=== PATIENT | male | born 1970 ===

== ENCOUNTER 2017-04-04 18:57 | Observation (INO) | payer MEDICAID ==
--- NOTE | 2017-04-04 20:22 | EDM.PDOC ---
ED HPI GENERAL MEDICAL PROBLEM - General Chief Complaint: General Stated Complaint: PT DIZZY Time Seen by Provider: 04/04/17 19:21 Source of Information: Reports: Patient History Limitations: Reports: No Limitations - History of Present Illness INITIAL COMMENTS - FREE TEXT/NARRATIVE: Patient presents with a three-day history of blurry vision, weakness, off-and- on dizziness, nausea thirst that he cannot quench, and "peeing lots". He denies any medical problems but he has had very inconsistent medical care in his life. He denies any personal or family history of diabetes. 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 Right Lower Abdomen Pain Score (Numeric/FACES): 4 - Related Data Allergies Allergy/AdvReac Type Severity Reaction Status Date / Time No Known Allergies Allergy Verified 04/04/17 19:15 Home Meds: Home Meds . [No Known Home Meds] 04/04/17 [History] Past Medical History Gastrointestinal History: Reports: None - Infectious Disease History Infectious Disease History: Reports: Chicken Pox, Shingles - Past Surgical History GI Surgical History: Reports: Hernia, Abdominal Social & Family History - Family History Family Medical History: Noncontributory - Tobacco Use Smoking Status *Q: Current Every Day Smoker Years of Tobacco use: 30 Packs/Tins Daily: 1 - Caffeine Use Caffeine Use: Reports: Coffee, Soda - Recreational Drug Use Recreational Drug Use: No ED ROS GENERAL - Review of Systems Review Of Systems: See Below Constitutional: Denies: Fever, Night Sweats HEENT: Reports: No Symptoms Respiratory: Reports: No Symptoms. Denies: Shortness of Breath, Cough Cardiovascular: Denies: Chest Pain, Lightheadedness, Palpitations Endocrine: Reports: Polydypsia, Polyuria GI/Abdominal: Reports: Abdominal Pain (mild LLQ), Nausea. Denies: Black Stool, Bloody Stool, Constipation, Diarrhea : Denies: Dysuria, Urgency Musculoskeletal: Reports: No Symptoms Skin: Reports: No Symptoms Neurological: Reports: Dizziness, Headache (off and on mild), Weakness, Other ( blurry vision) Psychiatric: Reports: No Symptoms Hematologic/Lymphatic: Reports: No Symptoms Immunologic: Reports: No Symptoms ED EXAM, GENERAL - Physical Exam Exam: See Below Exam Limited By: No Limitations General Appearance: Alert, No Apparent Distress Eye Exam: Bilateral Eye: EOMI, PERRL Ears: Normal External Exam, Normal TMs Nose: Normal Inspection Throat/Mouth: Normal Inspection Head: Atraumatic, Normocephalic Neck: Normal Inspection Respiratory/Chest: No Respiratory Distress, Lungs Clear, Normal Breath Sounds Cardiovascular: Normal Peripheral Pulses, Regular Rate, Rhythm, No Murmur GI/Abdominal: Soft, Non-Tender, No Distention Back Exam: Normal Inspection Extremities: Normal Inspection Neurological: Alert, Oriented, CN II-XII Intact, Normal Cognition, No Motor/ Sensory Deficits Psychiatric: Normal Affect, Normal Mood Skin Exam: Warm, Dry, Intact, Normal Color, No Rash Lymphatic: No Adenopathy Course - Vital Signs Last Recorded V/S: Last Vital Signs Temp 36.8 C 04/04/17 19:11 Pulse 100 04/04/17 19:11 Resp 17 04/04/17 19:11 BP 133/78 04/04/17 19:11 Pulse Ox 94 L 04/04/17 19:11 - Orders/Labs/Meds Orders: Active Orders 24 hr Category Date Time Status Patient Status [ADT] Stat ADT 04/04/17 21:04 Ordered GLYCOSYLATED HEMOGLOBIN,HGBA1C [CHEM] Stat Lab 04/04/17 21:02 Ordered UA W/MICROSCOPIC [URIN] Stat Lab 04/04/17 20:49 Uncollected Sodium Chloride 0.9% [Normal Saline] 1,000 ml Med 04/04/17 20:51 Ordered IV STAT Medication Orders Sodium Chloride (Normal Saline) 1,000 mls @ 999 mls/hr IV STAT ONE Stop: 04/04/17 21:51 Labs: Laboratory Tests 04/04/17 04/04/17 04/04/17 Range/Units 20:00 20:00 20:57 WBC 8.75 (4.0-11.0) K/uL RBC 4.63 (4.50-5.90) M/uL Hgb 14.1 (13.0-17.0) g/dL Hct 40.1 (38.0-50.0) % MCV 86.6 (80.0-98.0) fL MCH 30.5 (27.0-32.0) pg MCHC 35.2 (31.0-37.0) g/dL RDW Std Deviation 39.5 (28.0-62.0) fl RDW Coeff of Yves 13 (11.0-15.0) % Plt Count 254 (150-400) K/uL MPV 10.80 (7.40-12.00) fL Neut % (Auto) 68.4 (48.0-80.0) % Lymph % (Auto) 23.3 (16.0-40.0) % [place] % (Auto) 5.4 (0.0-15.0) % Eos % (Auto) 2.6 (0.0-7.0) % Baso % (Auto) 0.3 (0.0-1.5) % Neut # (Auto) 6.0 H (1.4-5.7) K/uL Lymph # (Auto) 2.0 (0.6-2.4) K/uL [place] # (Auto) 0.5 (0.0-0.8) K/uL Eos # (Auto) 0.2 (0.0-0.7) K/uL Baso # (Auto) 0.0 (0.0-0.1) K/uL Nucleated RBC % 0.0 /100WBC Nucleated RBCs # 0 K/uL Sodium 135 L (136-146) mmol/L Potassium 4.6 (3.5-5.1) mmol/L Chloride 103 (98-110) mmol/L Carbon Dioxide 22 (21-31) mmol/L BUN 13 (6.0-23.0) mg/dL Creatinine 1.2 (0.6-1.5) mg/dL Est Cr Clr Drug Dosing 63.04 mL/min Estimated GFR (MDRD) > 60.0 ml/min Glucose 631 H* (60-110) mg/dL Calcium 9.4 (8.8-10.8) mg/dL Total Bilirubin 0.4 (0.1-1.5) mg/dL AST 13 (5-40) IU/L ALT 21 (8-54) IU/L Alkaline Phosphatase 127 (40-150) Total Protein 6.6 (6.0-8.0) g/dL Albumin 3.8 (3.5-5.0) g/dL Globulin 2.8 (2.0-3.5) g/dL Albumin/Globulin Ratio 1.4 (1.3-2.8) Urine Color YELLOW Urine Appearance CLEAR Urine pH 6.5 (5.0-8.0) Ur Specific [place] 1.010 (1.001-1.035) Urine Protein NEGATIVE (NEGATIVE) mg/dL Urine Glucose (UA) >=1000 (NEGATIVE) mg/dL Urine Ketones 15 H (NEGATIVE) mg/dL Urine Occult Blood NEGATIVE (NEGATIVE) Urine Nitrite NEGATIVE (NEGATIVE) Urine Bilirubin NEGATIVE (NEGATIVE) Urine Urobilinogen 0.2 (<2.0) EU/dL Ur Leukocyte Esterase NEGATIVE (NEGATIVE) Meds: Medications Generic Name Dose Route Start Last Admin Trade Name Freq PRN Reason Stop Dose Admin Sodium Chloride 1,000 mls @ 999 mls/hr 04/04/17 20:51 Normal Saline IV 04/04/17 21:51 STAT ONE Discontinued Medications Generic Name Dose Route Start Last Admin Trade Name Freq PRN Reason Stop Dose Admin Insulin Human Regular 10 unit 04/04/17 21:03 Novolin R IVPUSH 04/04/17 21:04 ONETIME ONE Protocol - Re-Assessments/Exams Free Text/Narrative Re-Assessment/Exam: 04/04/17 21:00 Visited with patient regarding his blood sugar, new onset diabetes, acute management plan Free Text/Narrative Re-Assessment/Exam: 04/04/17 21:[address] Jag Chang regarding new onset diabetes with blood sugar over 600. Same will admit for observation to initiate management plan. 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 : without half-way use Qualified Code(s): E13.65 - Other specified diabetes mellitus with hyperglycemia - Discharge Information Referrals: PCP,None [Primary Care Provider] - Forms: ED Department Discharge - My Orders Last 24 Hours: My Active Orders 04/04/17 20:49 UA W/MICROSCOPIC [URIN] Stat 04/04/17 20:51 Sodium Chloride 0.9% [Normal Saline] 1,000 ml IV STAT 04/04/17 21:04 Patient Status [ADT] Stat - Assessment/Plan Last 24 Hours: My Active Orders 04/04/17 20:49 UA W/MICROSCOPIC [URIN] Stat 04/04/17 20:51 Sodium Chloride 0.9% [Normal Saline] 1,000 ml IV STAT 04/04/17 21:04 Patient Status [ADT] Stat
[2017-04-04 20:34] LABS: CHLORIDE,CL 103 mmol/L (98-110); SODIUM,NA 135 mmol/L (136-146)
[2017-04-04] MEDS ORDERED: Sodium Chloride 0.9% 1,000 ML IV ONE (20:51)
[2017-04-04] MEDS ORDERED: Insulin Regular, Human 100 Units/ML 10 ML Vial IVPUSH ONE (21:03)
[2017-04-04] MEDS ORDERED: Ondansetron 4 MG/2 ML SDV IVPUSH PRN (22:27)
[2017-04-04] MEDS ORDERED: Acetaminophen 325 MG Tab PO PRN (22:27)
[2017-04-04] MEDS ORDERED: Sodium Chloride 0.9% 1,000 ML IV SCH (22:30)
[2017-04-04] MEDS: Sodium Chloride 0.9% 1,000 ML IV SCH (22:59)
[2017-04-04] MEDS ORDERED: Insulin Aspart 100 Units/ML 3 ML Pen SUBCUT ONE (23:00)
[2017-04-05] MEDS: Sodium Chloride 0.9% 1,000 ML IV SCH ×2 (00:09→08:54)
[2017-04-05] MEDS ORDERED: Nicotine 14 MG/24 Hr Patch TRDERM ONE (00:15)
[2017-04-05 05:32] LABS: CHLORIDE,CL 105 mmol/L (98-110); SODIUM,NA 135 mmol/L (136-146)
[2017-04-05] MEDS: Insulin Aspart 100 Units/ML 3 ML Pen SUBCUT SCH ×3 (07:31→17:54)
--- NOTE | 2017-04-05 08:10 | PCM.HP ---
H&P History of Present Illness - General Date of Service: 04/05/17 Admit Problem/Dx: Admission Diagnosis/Problem Admission Diagnosis/Problem Diabetes mellitus Source of Information: Patient History Limitations: Reports: No Limitations - History of Present Illness Initial Comments - Free Text/Narative: This 46 year old male presented to the ED last evening with complaints of polyuria, polydipsia, and blurred vision x 2 weeks, which has progressively worsened. He denies DM type 2. He takes no medications daily. He denies chest pain or SOB. No recent illness. He normally has trouble sleeping. He reports having a dry mouth and feeling the need to drink a lot. He reports drinking anything he can, including vitamin water, gatorade and orange juice along with water. He reports his mother has DM but believes she only takes oral medication to control it. In the ED, no leukocytosis noted, Na 135, glucose 631, A1c 14.1. he was treated with insulin and IV fluids. Ua negative, some ketones noted in urine. He was admitted observation due to hyperglycemia with new onset DM type 2. Right Lower Abdomen Pain Score (Numeric/FACES): 4 - Related Data Allergies/Adverse Reactions: Allergies Allergy/AdvReac Type Severity Reaction Status Date / Time No Known Allergies Allergy Verified 04/04/17 19:15 Home Medications: Home Meds Insulin Aspart [NovoLOG] See Protocol SUBCUT TIDAC #1 pen 04/05/17 [Rx] Insulin Glarg,Human.Rec.Analog [LantUS Solostar] 15 units SUBCUT DAILY #1 pen [Rx] Nicotine [Habitrol] 14 mg TRDERM BEDTIME #30 patch 04/05/17 [Rx] glyBURIDE [Micronase] 5 mg PO WITHBREAKFAST #30 tablet 04/05/17 [Rx] metFORMIN HCl [Metformin HCl] 1,000 mg PO BID #60 tablet 04/05/17 [Rx] Past Medical History Cardiovascular History: Reports: None. Denies: Afib, Blood Clots/VTE/DVT, High Cholesterol, Hypertension, RI Respiratory History: Denies: Asthma, COPD, PE Gastrointestinal History: Reports: None, Other (See Below) (umbilical hernia). Denies: GERD, GI Bleed Genitourinary History: Reports: None. Denies: Acute Renal Failure, Chronic Renal Insuffiency Neurological History: Reports: None. Denies: CVA, TIA Endocrine/Metabolic History: Reports: Obesity/BMI 30+ - Infectious Disease History Infectious Disease History: Reports: Chicken Pox, Shingles - Past Surgical History GI Surgical History: Reports: Hernia, Inguinal (repair in 2007) Social & Family History - Family History Family Medical History: Noncontributory - Tobacco Use Smoking Status *Q: Current Every Day Smoker Years of Tobacco use: 30 Packs/Tins Daily: 1 - Caffeine Use Caffeine Use: Reports: Coffee, Soda - Recreational Drug Use Recreational Drug Use: No - Living Situation & Occupation Living situation: Reports: Single Occupation: Employed H&P Review of Systems - Review of Systems: Review Of Systems: See Below General: Reports: No Symptoms. Denies: Fever, Chills, Malaise, Weakness HEENT: Reports: Visual Changes (blurred), Other (polydipsia). Denies: Headaches , Hearing Changes, Sinus Congestion, Sore Throat Pulmonary: Reports: No Symptoms. Denies: Shortness of Breath Cardiovascular: Reports: No Symptoms. Denies: Chest Pain, Palpitations Gastrointestinal: Reports: No Symptoms. Denies: Abdominal Pain, Black Stool, Bloody Stool, Nausea, Vomiting Genitourinary: Reports: Other (polyuria) Musculoskeletal: Reports: No Symptoms. Denies: Neck Pain Skin: Reports: No Symptoms Psychiatric: Reports: No Symptoms. Denies: Homicidal Ideation Neurological: Reports: No Symptoms. Denies: Confusion Hematologic/Lymphatic: Reports: No Symptoms. Denies: Anemia Immunologic: Reports: No Symptoms. Denies: Anaphylaxis Exam - Exam Exam: See Below - Vital Signs Vital Signs: Last Vital Signs Temp 97.9 F 04/05/17 04:00 Pulse 77 04/05/17 04:00 Resp 16 04/05/17 04:00 BP 122/79 04/05/17 04:00 Pulse Ox 94 L 04/05/17 04:00 Weight: 81.647 kg - Exam General: Alert, Oriented, Cooperative HEENT: PERRLA, Hearing Intact, Mucosa Moist & [place], Nares Patent, Normal Nasal Septum, Posterior Pharynx Clear, Conjunctiva Clear, EOMI, EACs Clear, TMs Clear Lungs: Clear to Auscultation, Normal Respiratory Effort Cardiovascular: Regular Rate, Regular Rhythm GI/Abdominal Exam: Normal Bowel Sounds, Soft, Non-Tender, No Organomegaly, No Distention, No Abnormal Bruit, No Mass, Pelvis Stable Back Exam: Normal Inspection, Full Range of Motion, NT Extremities: Normal Inspection, Normal Range of Motion, Non-Tender, No Pedal Edema, Normal Capillary Refill Neuro Extensive - Mental Status: Alert, Oriented x3, Normal Mood/Affect, Normal Cognition Psychiatric: Alert, Normal Affect, Normal Mood - Patient Data Lab Results Last 24 hrs: Laboratory Results - last 24 hr 04/04/17 04/04/17 04/05/17 Range/Units 21:58 22:37 01:28 WBC (4.0-11.0) K/uL RBC (4.50-5.90) M/uL Hgb (13.0-17.0) g/dL Hct (38.0-50.0) % MCV (80.0-98.0) fL MCH (27.0-32.0) pg MCHC (31.0-37.0) g/dL RDW Std Deviation (28.0-62.0) fl RDW Coeff of Yves (11.0-15.0) % Plt Count (150-400) K/uL MPV (7.40-12.00) fL Neut % (Auto) (48.0-80.0) % Lymph % (Auto) (16.0-40.0) % [place] % (Auto) (0.0-15.0) % Eos % (Auto) (0.0-7.0) % Baso % (Auto) (0.0-1.5) % Neut # (Auto) (1.4-5.7) K/uL Lymph # (Auto) (0.6-2.4) K/uL [place] # (Auto) (0.0-0.8) K/uL Eos # (Auto) (0.0-0.7) K/uL Baso # (Auto) (0.0-0.1) K/uL Nucleated RBC % /100WBC Nucleated RBCs # K/uL Sodium (136-146) mmol/L Potassium (3.5-5.1) mmol/L Chloride (98-110) mmol/L Carbon Dioxide (21-31) mmol/L BUN (6.0-23.0) mg/dL Creatinine (0.6-1.5) mg/dL Est Cr Clr Drug Dosing mL/min Estimated GFR (MDRD) ml/min Glucose (60-110) mg/dL POC Glucose 326 H 221 H 272 H (60-110) mg/dL Calcium (8.8-10.8) mg/dL 04/05/17 04/05/17 04/05/17 Range/Units 04:40 04:40 06:31 WBC 7.91 (4.0-11.0) K/uL RBC 4.19 L (4.50-5.90) M/uL Hgb 12.7 L (13.0-17.0) g/dL Hct 36.6 L (38.0-50.0) % MCV 87.4 (80.0-98.0) fL MCH 30.3 (27.0-32.0) pg MCHC 34.7 (31.0-37.0) g/dL RDW Std Deviation 40.5 (28.0-62.0) fl RDW Coeff of Yves 13 (11.0-15.0) % Plt Count 244 (150-400) K/uL MPV 10.70 (7.40-12.00) fL Neut % (Auto) 46.7 L (48.0-80.0) % Lymph % (Auto) 39.7 (16.0-40.0) % [place] % (Auto) 8.0 (0.0-15.0) % Eos % (Auto) 5.3 (0.0-7.0) % Baso % (Auto) 0.3 (0.0-1.5) % Neut # (Auto) 3.7 (1.4-5.7) K/uL Lymph # (Auto) 3.1 H (0.6-2.4) K/uL [place] # (Auto) 0.6 (0.0-0.8) K/uL Eos # (Auto) 0.4 (0.0-0.7) K/uL Baso # (Auto) 0.0 (0.0-0.1) K/uL Nucleated RBC % 0.0 /100WBC Nucleated RBCs # 0 K/uL Sodium 135 L (136-146) mmol/L Potassium 4.3 (3.5-5.1) mmol/L Chloride 105 (98-110) mmol/L Carbon Dioxide 22 (21-31) mmol/L BUN 11 (6.0-23.0) mg/dL Creatinine 1.1 (0.6-1.5) mg/dL Est Cr Clr Drug Dosing 68.77 mL/min Estimated GFR (MDRD) > 60.0 ml/min Glucose 473 H (60-110) mg/dL POC Glucose 323 H (60-110) mg/dL Calcium 8.3 L (8.8-10.8) mg/dL Result Diagrams: 04/05/17 04:40 04/05/17 04:40 *Q Meaningful Use (ADM) - VTE *Q VTE Criteria *Q: - Stroke *Q Stroke Criteria *Q: - AMI *Q AMI Criteria *Q: - Problem List (1) New onset type 2 diabetes mellitus SNOMED Code(s): 69203781 ICD Code: E11.9 - TYPE 2 DIABETES MELLITUS WITHOUT COMPLICATIONS Status: Acute Current Visit: Yes Problem List Initiated/Reviewed/Updated: Yes Orders Last 24hrs: Active Orders 24 hr Category Date Time Status Accu Check [Blood Glucose Check, Bedside] [RC] Q4H Care 04/04/17 21:54 Active Antiembolic Devices [RC] PER UNIT ROUTINE Care 04/04/17 22:28 Active Intake and Output [RC] Q12H Care 04/04/17 22:27 Active Oxygen Therapy [RC] PRN Care 04/04/17 22:27 Active Up ad Daisy [RC] ASDIRECTED Care 04/04/17 22:27 Active VTE/DVT Education [RC] PER UNIT ROUTINE Care 04/04/17 22:27 Active Vital Signs [RC] Q4H Care 04/04/17 22:27 Active Consult to Diabetic Nurse Specialist [CONS] Routine Cons 04/04/17 22:29 Active Acetaminophen [Tylenol] Med 04/04/17 22:27 Active 650 mg PO Q4H PRN Enoxaparin [Lovenox] Med 04/05/17 09:00 Active 40 mg SUBCUT DAILY Insulin Aspart [NovoLOG] Med 04/05/17 07:30 Active See Protocol SUBCUT TIDAC Nicotine [Habitrol] Med 04/05/17 21:00 Active 14 mg TRDERM BEDTIME Ondansetron [Zofran] Med 04/04/17 22:27 Active 4 mg IVPUSH Q4H PRN Sodium Chloride 0.9% [Normal Saline] 1,000 ml Med 04/04/17 22:30 Active IV .BOLUS Sodium Chloride 0.9% [Normal Saline] 1,000 ml Med 04/04/17 22:30 Active IV ASDIRECTED Sequential Compression Device [OM.PC] Per Unit Routine Oth 04/04/17 22:27 Ordered Resuscitation Status Routine Resus Stat 04/04/17 22:27 Ordered Medication Orders Acetaminophen (Tylenol) 650 mg PO Q4H PRN PRN Reason: Pain (Mild 1-3)/fever Enoxaparin Sodium (Lovenox) 40 mg SUBCUT DAILY EVER Sodium Chloride (Normal Saline) 1,000 mls @ 999 mls/hr IV .BOLUS EVER Stop: 04/05/17 22:31 Last Admin: 04/04/17 22:59 Dose: 999 mls/hr Sodium Chloride (Normal Saline) 1,000 mls @ 125 mls/hr IV ASDIRECTED EVER Last Admin: 04/05/17 00:09 Dose: 125 mls/hr Insulin Aspart (Novolog) 0 unit SUBCUT TIDAC EVER PRN Reason: Protocol Last Admin: 04/05/17 07:31 Dose: 4 units Nicotine (Habitrol) 14 mg TRDERM BEDTIME EVER Ondansetron HCl (Zofran) 4 mg IVPUSH Q4H PRN PRN Reason: Nausea Assessment/Plan Comment:: Assessment/Plan This 46 year old male admitted with new onset DM type 2 1. New onset DM type 2: A1c 14.1. Dm educator visited with him regarding diet and medications. We discussed insulin vs po medications only. With his A1c so elevated we need to treat with some insulin. We will also start Metformin and Glyburide. Due to having no insurance insulin will be nearly impossible for him to afford. He was given Novolog SSI along with lantus 15 units today. He is feelin somewhat better, he was encouraged to continue drinking plenty of water, limit sugary drinks and diet change as discussed with the perinatal educator. Discharge plan: Patient is requesting discharge today, which is ok. I have provided scripts for Metformin 1000 mg BID, Glyburide 5 mg daily along with Novolog SSI and Lantus 15 units every evening. 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 He is to change diet and follow treatment plan. he is to check BS with each meal and at bedtime. He will follow with with Betty perinatal educator next week as well as with new PCP. He is to return to ED or clinic if concerns should arise.
[2017-04-05] MEDS ORDERED: Enoxaparin 40 MG/0.4 ML Syringe SUBCUT SCH (09:00)
[2017-04-05] MEDS ORDERED: Insulin Glargine,Human Rec. Analog 100 Units/ML 3 ML Pen SUBCUT SCH (11:00)
[2017-04-05] MEDS ORDERED: glyBURIDE 5 MG Tab PO SCH (11:35)
[2017-04-05] MEDS: metFORMIN 500 MG Tab PO SCH ×2 (12:48→17:54)
[2017-04-05] MEDS ORDERED: Nicotine 14 MG/24 Hr Patch TRDERM SCH (21:00)
== END 2017-04-05 17:10 | disposition home or self-care (01) ==
LOC: MW.ED 18:57 → MW.MS 21:04
PROVIDERS: ADMIT Internal Medicine; ATTEND Internal Medicine
DX: E11.65 Type 2 diabetes mellitus with hyperglycemia (principal); E66.9 Obesity, unspecified; F17.200 Nicotine dependence, unspecified, uncomplicated; Z68.30 Body mass index [BMI] 30.0-30.9, adult; Z79.4 Long term (current) use of insulin
CPT/HCPCS: 36415; 80048; 80053; 81001; 82962; 83036; 85025; 96360; 96361; 96372; 99285; A9270; G0378; J1650; J1815; J7040; 96374; 99284